=== PATIENT | female | born 1980 | race Caucasian/White ===

== ENCOUNTER 2019-07-29 14:52 | Emergency (ER) | payer OTHER ==
[~2019-07-29] VITALS: Ht 175.3 cm; Wt 113.4 kg
== END 2019-07-29 15:06 | disposition home or self-care (01) ==
LOC: ER 14:52
DX: S01.01XD Laceration without foreign body of scalp, subsequent encounter (principal); Z88.6 Allergy status to analgesic agent
CPT/HCPCS: 99281